=== PATIENT | female | born 1940 | race Caucasian/White ===

== ENCOUNTER → 2018-08-19 13:35 | Outpatient (CLI) | payer MEDICARE, OTHER ==
--- NOTE | ~2018-08-19 | ST ---
PATIENT:TIERNEY CAMPOVERDE MEDICAL RECORD: [id number] SEX: F LOCATION:[facility] ORDER #: ADMISSION DATE: 08/19/18 AGE OF PATIENT: 78 REFERRING PHYSICIAN: INTERPRETING PHYSICIAN: PRASANNA WEINER MD DATE OF SERVICE: 08/19/2018 PROCEDURE: Treadmill stress test. Baseline ECG is normal. Exercised for 5 minutes on Uzair protocol. Maximum heart rate 147 beats per minute, greater than 85% of maximum predicted. No ECC change of ischemia. No symptoms of ischemia. Normal blood pressure response to exercise. No arrhythmias noted. Good exercise tolerance for age. TRANSINT:[id number] Voice Confirmation ID: [id number] DOCUMENT ID: [id number] PRASANNA WEINER MD CC: [id number] DICTATION DATE: 08/31/18 1339 PAPER FEEDER: 09/01/18 0019 DEP CLI 08/19/18 [id number] [place] [address]
== END | disposition home or self-care (01) ==
LOC: D.HCCARDIO 13:35
DX: R06.09 Other forms of dyspnea (principal)